=== PATIENT | female | born 1945 | race Caucasian/White ===

== ENCOUNTER 2021-09-12 17:31 | Observation (INO) ==
[2021-09-12 18:54] LABS: Basophils # 0.1 K/mcL (0.0-0.2); Basophils % 0.8 %; Eosinophils # 0.4 K/mcL (0.0-0.6); Eosinophils % 4.8 %; Hematocrit 36.2 % (35.3-44.9); Hemoglobin 11.6 g/dL (11.5-15.4); Immature Granulocytes % 0.6 % (0-4); Lymphocytes # 1.8 K/mcL (0.6-4.6); Lymphocytes % 20.1 %; Mean Corpuscular Hemoglobin 28.9 pg (28.0-33.3); Mean Platelet Volume 9.5 fL (9.4-12.4); Monocytes # 0.9 K/mcL (0.0-1.3); Monocytes % 10.5 %; Neutrophils # 5.7 K/mcL (1.6-8.9); Platelet Count 245 K/mcL (140-400); Red Blood Count 4.02 M/mcL (3.82-4.97); Segmented Neutrophils % 63.2 %
[2021-09-12 19:15] LABS: Acetaminophen < 10 mcg/mL (10-20); BUN/Creatinine Ratio 8 (6-26); Blood Urea Nitrogen 10 mg/dL (8-23); Calcium 9.4 mg/dL (8.6-10.3); Carbon Dioxide 25 mEq/L (23-29); Chloride 107 mEq/L (98-107); Ethanol < 10 mg/dL (Less than 10); Glucose 95 mg/dL (70-105); Osmolality,Calculated 289 (280-300); Potassium 3.6 mEq/L (3.5-5.1); Salicylate < 2.5 mg/dL (15.0-30.0); Sodium 140 mEq/L (136-145); eGFR For African Americans 51 (> 60); eGFR For Non-African Americans 42 (> 60)
[2021-09-12 19:18] LABS: Albumin 3.9 g/dL (3.5-5.7); Albumin/Globulin Ratio 1.6 (1.1-2.2); Bilirubin,Direct 0.1 mg/dL (0.0-0.2); Bilirubin,Indirect 0.4 mg/dL (0.0-1.0); Bilirubin,Total 0.5 mg/dL (0.3-1.0); Chol/HDL Ratio 2.3 (0-4.9); Globulin 2.4 g/dL (2.4-3.5); Total Protein 6.3 g/dL (6.4-8.9)
[2021-09-12 19:27] LABS: Bilirubin,Urine Negative (Negative); Blood,Urine Trace (Negative); Clarity,Urine Clear (Clear); Color,Urine Light-Yellow (Yellow); Glucose,Urine (UA) Normal (Normal); Ketones,Urine Negative (Negative); Leukocyte Esterase,Urine Moderate (Negative); Mucus,Urine Few per lpf (None-Few); Nitrite,Urine Negative (Negative); Protein,Urine Negative (Neg-Trace); RBC,Urine 0-3 per hpf (0-3); Squamous Epithelial Cell,Urine Few per hpf (None-Few); Urobilinogen,Urine Normal (Normal); WBC,Urine 30-50 per hpf (0-3)
[2021-09-12] MEDS ORDERED: *HR* LORazepam 0.5 MG TABLET PO ONE (19:28)
[2021-09-12 19:30] LABS: Thyroid Stimulating Hormone 18.733 mcIU/mL (0.340-5.600)
[2021-09-12 19:48] LABS: Estimated Average Glucose 117 mg/dl; Hemoglobin A1C 5.7 %
[2021-09-12 19:51] LABS: Amphetamine Screen,Urine Negative ng/mL (Cutoff=1000); Barbiturate Screen,Urine Negative ng/mL (Cutoff=200); Benzodiazepines Screen,Urine Negative ng/mL (Cutoff=200); Cannabinoid Screen,Urine Negative ng/mL (Cutoff = 50); Cocaine Screen,Urine Negative ng/mL (Cutoff= 300); Opiate Screen,Urine Negative ng/mL (Cutoff=300); Phencyclidine Screen,Urine Negative ng/mL (Cutoff=25)
[2021-09-12 22:48] LABS: Influenza A PCR Negative (Negative); Influenza B PCR Negative (Negative); Resp. Syncytial Virus PCR Negative (Negative); SARS-CoV-2 by PCR (In House) Negative (Negative)
[2021-09-13] MEDS ORDERED: Ondansetron ODT 4 MG TAB.RAPDIS SL ONE (07:00)
[2021-09-13] MEDS ORDERED: Famotidine 20 MG TABLET PO ONE (11:17)
[2021-09-13] MEDS: ALPRAZolam 0.5 MG TABLET PO PRN (11:25)
[2021-09-13] MEDS ORDERED: GI Cocktail 40 ML EACH PO ONE (11:38)
[2021-09-13] MEDS ORDERED: Isovue-370 500 ML BOTTLE IVP ONE (13:35)
[2021-09-13] MEDS ORDERED: cefTRIAXone 1,000 MG in 0.9 % Sodium Chloride Mini Bag 100 ML IVPB ONE (15:13)
[2021-09-13] MEDS ORDERED: Naloxone 0.4 MG/ML INJ IVP PRN (18:25)
[2021-09-13] MEDS ORDERED: Acetaminophen IV 1,000 MG/100 ML BAG IVPB ONE (20:46)
[2021-09-13] MEDS ORDERED: Famotidine 20 MG TABLET PO SCH (21:00)
[2021-09-13] MEDS ORDERED: *HR* LORazepam 2 MG/ML VIAL IVP ONE (21:03)
[2021-09-13] MEDS: 0.9 % Sodium Chloride 1,000 ML IVC SCH (22:06)
[2021-09-14] MEDS: *HR* Enoxaparin 40 MG/0.4 ML SYRINGE SQ SCH (05:30)
[2021-09-14 07:24] LABS: Potassium 3.8 mEq/L (3.5-5.1)
[2021-09-14 07:43] LABS: Hematocrit 35.4 % (35.3-44.9); Hemoglobin 11.4 g/dL (11.5-15.4); Mean Corpuscular HGB Conc 32.2 g/dL (31.6-35.5); Mean Corpuscular Hemoglobin 29.3 pg (28.0-33.3); Mean Platelet Volume 10.1 fL (9.4-12.4); Platelet Count 255 K/mcL (140-400); Red Blood Count 3.89 M/mcL (3.82-4.97); Segmented Neutrophils % 55.6 %; White Blood Count 8.1 K/mcL (4.3-11.1)
[2021-09-14 07:44] LABS: Basophils # 0.1 K/mcL (0.0-0.2); Basophils % 1.4 %; Eosinophils # 0.6 K/mcL (0.0-0.6); Eosinophils % 7.9 %; Immature Granulocytes % 0.6 % (0-4); Lymphocytes # 1.9 K/mcL (0.6-4.6); Lymphocytes % 23.9 %; Monocytes # 0.9 K/mcL (0.0-1.3); Monocytes % 10.6 %; Neutrophils # 4.5 K/mcL (1.6-8.9)
[2021-09-14] MEDS: 0.9 % Sodium Chloride 1,000 ML IVC SCH (11:24)
[2021-09-14] MEDS: Acetaminophen 325 MG TABLET PO PRN (12:02)
[2021-09-14] MEDS: ALPRAZolam 0.5 MG TABLET PO PRN (13:38)
[2021-09-14] MEDS ORDERED: Gadolinium Contrast Agent (WT Based) IV PRN (14:22)
[2021-09-14] MEDS ORDERED: GADOBUTROL 30 MMOL/30 ML VIAL IVP ONE (16:46)
[2021-09-14] MEDS: Famotidine 20 MG TABLET PO SCH (20:16)
[2021-09-15] MEDS ORDERED: *HR* LORazepam 2 MG/ML VIAL IVP ONE (00:29)
[2021-09-15] MEDS: *HR* Enoxaparin 40 MG/0.4 ML SYRINGE SQ SCH (06:02)
[2021-09-15 08:33] LABS: Basophils # 0.1 K/mcL (0.0-0.2); Eosinophils # 0.5 K/mcL (0.0-0.6); Eosinophils % 5.9 %; Hemoglobin 12.6 g/dL (11.5-15.4); Immature Granulocytes % 0.4 % (0-4); Lymphocytes # 1.7 K/mcL (0.6-4.6); Lymphocytes % 20.3 %; Mean Corpuscular HGB Conc 31.5 g/dL (31.6-35.5); Mean Corpuscular Hemoglobin 28.5 pg (28.0-33.3); Mean Corpuscular Volume 90.5 fL (83.0-100.0); Mean Platelet Volume 9.4 fL (9.4-12.4); Monocytes # 0.8 K/mcL (0.0-1.3); Monocytes % 9.3 %; Neutrophils # 5.3 K/mcL (1.6-8.9); Platelet Count 277 K/mcL (140-400); Red Blood Count 4.42 M/mcL (3.82-4.97); Red Cell Distribution Width 13.8 % (11.5-14.5); Segmented Neutrophils % 63.1 %; White Blood Count 8.4 K/mcL (4.3-11.1)
[2021-09-15 09:25] LABS: Calcium 9.4 mg/dL (8.6-10.3)
[2021-09-15] MEDS: ALPRAZolam 0.5 MG TABLET PO PRN (14:37)
[2021-09-15] MEDS: Acetaminophen 325 MG TABLET PO PRN (18:15)
[2021-09-15] MEDS: Famotidine 20 MG TABLET PO SCH (21:16)
[2021-09-16] MEDS: *HR* Enoxaparin 40 MG/0.4 ML SYRINGE SQ SCH (05:26)
[2021-09-16 06:17] LABS: Basophils # 0.1 K/mcL (0.0-0.2); Basophils % 1.2 %; Eosinophils # 0.6 K/mcL (0.0-0.6); Eosinophils % 7.4 %; Hematocrit 37.2 % (35.3-44.9); Hemoglobin 11.8 g/dL (11.5-15.4); Immature Granulocytes % 0.6 % (0-4); Lymphocytes % 23.7 %; Mean Corpuscular HGB Conc 31.7 g/dL (31.6-35.5); Mean Corpuscular Hemoglobin 28.8 pg (28.0-33.3); Mean Corpuscular Volume 90.7 fL (83.0-100.0); Mean Platelet Volume 9.7 fL (9.4-12.4); Monocytes # 0.8 K/mcL (0.0-1.3); Monocytes % 9.4 %; Neutrophils # 4.8 K/mcL (1.6-8.9); Platelet Count 268 K/mcL (140-400); Red Cell Distribution Width 13.9 % (11.5-14.5); Segmented Neutrophils % 57.7 %; White Blood Count 8.3 K/mcL (4.3-11.1)
[2021-09-16 07:00] LABS: Calcium 9.5 mg/dL (8.6-10.3); Potassium 3.8 mEq/L (3.5-5.1)
[2021-09-16 07:14] VITALS: BP 171/69; PULSE 55; TEMP 97.7; O2SAT 93
[2021-09-16] MEDS: ALPRAZolam 0.5 MG TABLET PO SCH ×2 (10:14→17:16)
[2021-09-16 11:07] LABS: Influenza A PCR Negative (Negative); Influenza B PCR Negative (Negative); Resp. Syncytial Virus PCR Negative (Negative)
[2021-09-16 11:13] LABS: SARS-CoV-2 by PCR (In House) Negative (Negative)
[2021-09-16] MEDS ORDERED: Gadolinium Contrast Agent (WT Based) IV PRN (11:28)
[2021-09-16] MEDS ORDERED: *HR* LORazepam 2 MG/ML VIAL IVP ONE (11:46)
[2021-09-16] MEDS ORDERED: GADOBUTROL 30 MMOL/30 ML VIAL IVP ONE (12:47)
== END 2021-09-16 19:32 ==
LOC: EMEROOARM 17:31 → 3ANU 17:31 → SUATTDRO 09-13 17:51
PROVIDERS: ADMIT Family Medicine; ATTEND Student in an Organized Health Care Education/Training Program